=== PATIENT | female | born 1960 | race Caucasian/White ===

== ENCOUNTER 2019-04-22 06:54 | Emergency (ER) | payer OTHER ==
[2019-04-22] MEDS ORDERED: DIAZEPAM 5 MG TABLET ONE (08:13)
[2019-04-22] MEDS ORDERED: ONDANSETRON 4 MG (ODT) TAB ONE (08:14)
[2019-04-22] MEDS ORDERED: MORPHINE 4 MG/ML SYR ONE (08:14)
--- NOTE | 2019-04-22 08:54 | RAD REPORT ---
EXAM DESCRIPTION: CT - C Spine Wo Con - 04/22/2019 8:25 am CLINICAL HISTORY: Neck and back pain COMPARISON: None. TECHNIQUE: Axial 2 mm thick images of the cervical spine were obtained with sagittal and coronal rec onstruction images generated and reviewed. All CT scans are performed using dose optimization technique as appropriate and may include automated exposure control or mA/KV adjustment according to patient size. FINDINGS: Cervical body height and alignment are normal. Slight narrowing of the C4-5 disc space not ed with anterior endplate spurring. C5-C7 fusion changes are present. No fracture or acute bony abnor mality. No bony encroachment into the central canal or exit foramina. No paraspinal mass or hematoma. Central canal detail is inherently limited on CT imaging. IMPRESSION: Negative CT cervical spine examination for acute or suspicious finding.
[2019-04-22] MEDS ORDERED: FENTANYL CITR 100 MCG/2 ML ONE (10:20)
--- NOTE | 2019-04-22 13:00 | ER ---
Nurse's Notes [facility] Name: Veronica Goldman Age: 58 yrs Sex: Female : 1960 Arrival Date: 04/22/2019 Time: 06:58 Bed 14 Private MD: Diagnosis: Strain of muscle and tendon of back wall of thorax;Radiculopathy;Radiculopathy, cervicothoracic region Presentation: 04/22 07:07 Presenting complaint: Patient states: hx of chronic back and neck pain; "Monday when i hj woke up i started having this neck pain, shooting pain from my upper spine area to the R hip area and R arm, pain is 10/10, i have an appt with my pain doctor on but i cant it anymore;. Transition of care: patient was not received from another setting of care. Onset of symptoms was April 22, 2019. Risk Assessment: Do you want to hurt yourself or someone else? Patient reports no desire to harm self or others. Initial Sepsis Screen: Does the patient meet any 2 criteria? No. Patient's initial sepsis screen is negative. Does the patient have a suspected source of infection? No. Patient's initial sepsis screen is negative. Care prior to arrival: None. 07:07 Method Of Arrival: Ambulatory 07:07 Acuity: KEDAR 4 hj Triage Assessment: 07:13 General: Appears in no apparent distress. uncomfortable, Behavior is calm, cooperative, hj appropriate for age. Pain: Complains of pain in back and right arm. Musculoskeletal: Circulation, motion, and sensation intact. Capillary refill < 3 seconds. Historical: - Allergies: 07:12 PENICILLINS; 07:12 Sulindac; - Home Meds: 07:12 propranolol Oral [Active]; Amitriptyline Oral [Active]; Methocarbamol Oral [Active]; hj hydrocodone-acetaminophen 7.5-750 mg Oral tab 1 tab every 4 hours [Active]; gabapentin oral oral [Active]; - PMHx: 07:12 Back pain; neck pain; Hypertension; hj - PSHx: 07:12 neck fusion; hj - Immunization history:: Adult Immunizations up to date. - Social history:: Smoking status: Patient/guardian denies using tobacco, Patient/guardian denies using alcohol. - Ebola Screening: : Patient negative for fever greater than or equal to 101.5 degrees Fahrenheit, and additional compatible Ebola Virus Disease symptoms Patient denies exposure to infectious person Patient denies travel to an Ebola-affected area in the 21 days before illness onset. Screenin:13 Abuse screen: Denies threats or abuse. Denies injuries from another. Nutritional hj screening: No deficits noted. Tuberculosis screening: No symptoms or risk factors identified. Fall Risk None identified. Assessment: 07:14 General: Appears in no apparent distress. uncomfortable, Behavior is cooperative, hj appropriate for age, crying. Pain: Complains of pain in right arm and back. Neuro: Level of Consciousness is awake, alert, obeys commands, Oriented to person, place, time, situation, Appropriate for age. Cardiovascular: Capillary refill < 3 seconds Patient's skin is warm and dry. Respiratory: Airway is patent Respiratory effort is even, unlabored, Respiratory pattern is regular, symmetrical. GI: No signs and/or symptoms were reported involving the gastrointestinal system. : No signs and/or symptoms were reported regarding the genitourinary system. EENT: No signs and/or symptoms were reported regarding the EENT system. Derm: No signs and/or symptoms reported regarding the dermatologic system. Musculoskeletal: Reports pain in right arm and back. 08:05 Reassessment: sent to CT;. hj 09:00 Reassessment: Patient and/or family updated on plan of care and expected duration. Pain hj level reassessed. Patient is alert, oriented x 3, equal unlabored respirations, skin warm/dry/pink. Patient states feeling better. Vital Signs: 07:12 BP 135 / 89; Pulse 84; Resp 18; Temp 98.9(O); Pulse Ox 96% on R/A; Weight 81.19 kg; hj Height 5 ft. 1 in. (154.94 cm); Pain 10/10; 09:00 BP 130 / 87; Pulse 82; Resp 18; Pulse Ox 98% on R/A; hj 09:45 BP 132 / 85; Pulse 80; Resp 18; Pulse Ox 96% on R/A; hj 10:57 BP 132 / 79; Pulse 69; Resp 18; Pulse Ox 96% on R/A; hj 11:45 BP 130 / 79; Pulse 65; Resp 18; Pulse Ox 100% on R/A; hj 07:12 Body Mass Index 33.82 (81.19 kg, 154.94 cm) ED Course: 06:58 Patient arrived in ED. ag3 06:59 Jasbir Ayala PA is PHCP. [facility] 06:59 Dank Harper MD is Attending Physician. [facility] 07:07 Gabriele Torres, RN is Primary Nurse. hj 07:09 Triage completed. hj 07:13 Arm band placed on. hj 07:13 Patient has correct armband on for positive identification. Bed in low position. Call hj light in reach. Side rails up X 1. 07:17 Attending Physician role handed off by Dank Harper MD [place] 07:17 James Rosales MD is Attending Physician. [facility] 08:26 CT C Spine In Process Unspecified. [facility] 11:44 No provider procedures requiring assistance completed. Patient did not have IV access hj during this emergency room visit. Administered Medications: 08:25 Drug: morphine 4 mg Route: IM; Site: right deltoid; hj 08:58 Follow up: Response: No adverse reaction hj 08:25 Drug: Zofran 4 mg Route: PO; hj 08:58 Follow up: Response: No adverse reaction hj 08:25 Drug: Valium 5 mg Route: PO; hj 08:58 Follow up: Response: No adverse reaction hj 10:03 Drug: fentaNYL (PF) 25 mcg Route: IM; Site: left deltoid; hj 10:07 Follow up: Response: No adverse reaction; Pain is decreased Outcome: 11:19 Discharge ordered by . [facility] 11:45 Discharged to home ambulatory. 11:45 Condition: stable 11:45 Discharge instructions given to patient, Instructed on discharge instructions, follow up and referral plans. medication usage, Demonstrated understanding of instructions, follow-up care, medications, Prescriptions given X 1. 11:45 Patient left the ED. Signatures: Dispatcher [employer] EDMS James Rosales MD MD cha Mickail, Joel, PA PA jmm Joaquin, Henry, RN RN Pati Giron 3
--- NOTE | 2019-04-22 13:00 | EDPHYS ---
Physician Documentation [facility] Name: Veronica Goldman Age: 58 yrs Sex: Female : 1960 Arrival Date: 04/22/2019 Time: 06:58 Bed 14 Private MD: ED Physician James Rosales HPI: 04/22 07:17 This 58 yrs old Female presents to ER via Ambulatory with complaints of Back jmm Pain. 07:17 The patient presents with pain that is acute. Onset: The symptoms/episode jmm began/occurred gradually, 2 day(s) ago. The pain radiates to the right arm. Associated signs and symptoms: Pertinent negatives: chest pain, fever, shortness of breath. This is a 58 year old female with a history of chronic neck pain, chronic back pain that presents to the ED with complaints of right upper back pain that radiates down her right arm. patient denies chest pain, denies shortness of breath. symptoms began the day after she was gardening. Denies weakness. . Historical: - Allergies: 07:12 PENICILLINS; hj 07:12 Sulindac; hj - Home Meds: 07:12 propranolol Oral [Active]; Amitriptyline Oral [Active]; Methocarbamol Oral [Active]; hj hydrocodone-acetaminophen 7.5-750 mg Oral tab 1 tab every 4 hours [Active]; gabapentin oral oral [Active]; - PMHx: 07:12 Back pain; neck pain; Hypertension; hj - PSHx: 07:12 neck fusion; hj - Immunization history:: Adult Immunizations up to date. - Social history:: Smoking status: Patient/guardian denies using tobacco, Patient/guardian denies using alcohol. - Ebola Screening: : Patient negative for fever greater than or equal to 101.5 degrees Fahrenheit, and additional compatible Ebola Virus Disease symptoms Patient denies exposure to infectious person Patient denies travel to an Ebola-affected area in the 21 days before illness onset. ROS: 07:17 Constitutional: Negative for fever, chills, and weight loss, Cardiovascular: Negative jmm for chest pain, palpitations, and edema, Respiratory: Negative for shortness of breath, cough, wheezing, and pleuritic chest pain, Abdomen/GI: Negative for abdominal pain, nausea, vomiting, diarrhea, and constipation. 07:17 Back: Positive for pain with movement. 07:17 All other systems are negative. Exam: 07:17 Head/Face: atraumatic. Chest/axilla: Normal chest wall appearance and motion. [facility] Cardiovascular: Regular rate and rhythm. No edema appreciated Respiratory: Normal respirations, no respiratory distress appreciated 07:17 Constitutional: The patient appears alert, awake, uncomfortable. 07:17 Neck: C-spine: appears grossly normal. 07:17 Back: pain is reproduced on on palpation of the right trapezius, pain is elicited on movement of the right arm. 07:17 Musculoskeletal/extremity: ROM: intact in all extremities. 07:17 Musculoskeletal/extremity: normal finger jerk reflex of the right arm, full performance improvement specialist strength. 07:17 Skin: Appearance: Color: normal in color. 07:17 Neuro: Orientation: is normal, Mentation: is normal, Memory: is normal. 07:17 Psych: Behavior/mood is pleasant, cooperative, anxious. Vital Signs: 07:12 BP 135 / 89; Pulse 84; Resp 18; Temp 98.9(O); Pulse Ox 96% on R/A; Weight 81.19 kg; Height 5 ft. 1 in. (154.94 cm); Pain 10/10; 09:00 BP 130 / 87; Pulse 82; Resp 18; Pulse Ox 98% on R/A; hj 09:45 BP 132 / 85; Pulse 80; Resp 18; Pulse Ox 96% on R/A; hj 10:57 BP 132 / 79; Pulse 69; Resp 18; Pulse Ox 96% on R/A; hj 11:45 BP 130 / 79; Pulse 65; Resp 18; Pulse Ox 100% on R/A; hj 07:12 Body Mass Index 33.82 (81.19 kg, 154.94 cm) MDM: 07:17 Patient medically screened. [facility] 11:18 Data reviewed: vital signs, nurses notes. Counseling: I had a detailed discussion with [facility] the patient and/or guardian regarding: the historical points, exam findings, and any diagnostic results supporting the discharge/admit diagnosis, radiology results, the need for outpatient follow up, to return to the emergency department if symptoms worsen or persist or if there are any questions or concerns that arise at home. 11:18 ED course: Patient's pain has been decreased in the ED. I do not suspect disection at [facility] this time. Denies tearing pain, denies chest pain, BP WNL. Symptoms appear radicular. Patient will follow up with pain management and is otherwise given strict return precautions. Patient understood and agrees with the plan of care. . 04/22 07:44 Order name: CT C Spine; Complete Time: 08:56 [facility] Administered Medications: 08:25 Drug: morphine 4 mg Route: IM; Site: right deltoid; hj 08:58 Follow up: Response: No adverse reaction hj 08:25 Drug: Zofran 4 mg Route: PO; hj 08:58 Follow up: Response: No adverse reaction hj 08:25 Drug: Valium 5 mg Route: PO; hj 08:58 Follow up: Response: No adverse reaction hj 10:03 Drug: fentaNYL (PF) 25 mcg Route: IM; Site: left deltoid; hj 10:07 Follow up: Response: No adverse reaction; Pain is decreased Disposition: 04/22/19 11:19 Discharged to Home. Impression: Strain of muscle and tendon of back wall of thorax, Radiculopathy, Radiculopathy, cervicothoracic region. - Condition is Stable. - Discharge Instructions: Cervical Radiculopathy, Thoracic Strain. - Prescriptions for orphenadrine citrate 100 mg Oral Tablet Sustained Release - take 1 tablet by ORAL route 2 times per day As needed; 20 tablet. - Medication Reconciliation Form, Thank You Letter, Antibiotic Education, Prescription Opioid Use form. - Follow up: Private Physician; When: 2 - 3 days; Reason: Recheck today's complaints, Continuance of care, Re-evaluation by your physician. Signatures: Dispatcher [employer] EDMS James Rosales MD MD cha Mickail, Joel, PA PA Gabriele Loza RN RN hj Corrections: (The following items were deleted from the chart) 11:45 11:19 04/22/2019 11:19 Discharged to Home. Impression: Strain of muscle and tendon of hj back wall of thorax; Radiculopathy; Radiculopathy, cervicothoracic region. Condition is Stable. Forms are Medication Reconciliation Form, Thank You Letter, Antibiotic Education, Prescription Opioid Use. Follow up: Private Physician; When: 2 - 3 days; Reason: Recheck today's complaints, Continuance of care, Re-evaluation by your physician. carminam
== END 2019-04-22 11:45 | disposition home or self-care (01) ==
LOC: ER 06:54
DX: S29.012A Strain of muscle and tendon of back wall of thorax, initial encounter (principal); M54.13 Radiculopathy, cervicothoracic region; X58.XXXA Exposure to other specified factors, initial encounter; Z88.0 Allergy status to penicillin
CPT/HCPCS: 72125; 96372; 99283; J3010

== ENCOUNTER 2025-08-02 15:01 | Emergency (ER) | payer OTHER ==
--- OUTSIDE RECORDS SUMMARY | 2025-08-02 15:05 | XMS REPORT | Continuity of Care Document ---
Author Name Unknown Address [address] [facility] [place] [address] Organization [facility] [place] Address [address] [facility] [place] [address] Care Team Providers Care Worship Director Name Role Phone PCP, PATIENT DOES NOT HAVE A Primary Care Physic kathleen Unavailable Aquilino Cortés Attending Clinician Unavailable Karlie Roberto Attending Clinician Unavailable BENITO VALDOVINOS Attending Clinician Unavailable EMILY SCHAFER Attending Clinician UnavailKARLOS Felix Admitting Clinician Unavailable Payers Payer Name Policy Type Policy Number Effective Date Expirati on Date Source [employer] MEDICARE PPO 53 [id number] 2022 00:00:00 [facility] MEDICARE PART A \T\ B [id number] 2006 00:00:00 Problems Condition Name Condition Details Condition Category Status Onset Date Resolution Date Last Treatment Date Treating Clinician Comments Source [id number] Mood disorder Problem [facility] [id number] Chronic pain syndrome Problem [facility] [id number] Abnormal mammogram Problem [facility] [id number] Bipolar I disorder with vidhya Problem [facility] [id number] Preop examinatio n Problem [facility] [id number] Seasonal allergies Problem [facility] [id number] Anxiety Problem [facility] [id number] Cervical high risk HPV (human papillomav irus) test positive Problem [facility] [id number] Calcaneal spur of left foot Problem [facility] [id number] Migraine without aura and without status migrainosu s, not intractabl e Problem [facility] [id number] Primary insomnia Problem [facility] [id number] Plantar fasciitis of left foot Problem [facility] [id number] Abnormal EKG Problem [facility] Allergies, Adverse Reactions, Alerts Allergy Name Allergy Type Status Severity Reaction(s) Onset Date Inactive Date Treating Clinician Comments Source SULINDAC DRUG INGREDI Active Anaphylaxis 01-30 00:00: 00 [facility] PENICILL INS Drug Class Active Anaphylaxis 01-30 00:00: 00 [facility] [id number] Drug allergy Active anaphylaxis [facility] predniso ne predniso ne Active hives [facility] Social History Social Habit Start Date Stop Date Quantity Comments Source History of Tobacco Use Current Smoker [facility] Sex Assigned At [facility] Smoking Status Start Date Stop Date Source Current Smoker 2025-06-11 00:00:00 [facility] Light tobacco smoker 2023-10-13 00:00:00 [facility] Medications Ordered Medication Name Filled Medication Name Start Date Stop Date Current Medication? Ordering Clinician Indication Dosage Frequency Signature (SIG) Comments Components Source Albuterol Sulfate HFA 108 (90 Base) MCG/ACT Albuterol Sulfate HFA 108 (90 Base) MCG/ACT 05-08 00:00: 00 No 1{puff_ as_need ed} 6xD Albuterol Sulfate HFA 108 (90 Base) MCG/ACT Topiramate 100 MG Topiramate 100 MG No Topiramate 100 MG Methocarbam ol 750 MG Methocarbam ol 750 MG No 1{table t} 6xD Methocarba mol 750 MG Gabapentin 600 MG Gabapentin 600 MG No 1{table t} TID Gabapentin 600 MG Amitriptyli ne HCl 100 MG Amitriptyli ne HCl 100 MG No 1{table t_at_be dtime} QD Amitriptyl ine HCl 100 MG QUEtiapine Fumarate 200 MG QUEtiapine Fumarate 200 MG No QUEtiapine Fumarate 200 MG Propranolol HCl 40 MG Propranolol HCl 40 MG No Propranolo l HCl 40 MG busPIRone HCl 15 MG busPIRone HCl 15 MG No busPIRone HCl 15 MG Atomoxetine HCl 100 MG Atomoxetine HCl 100 MG No Atomoxetin e HCl 100 MG oxyCODONE-A cetaminophe n 5-325 MG oxyCODONE-A cetaminophe n 5-325 MG No oxyCODONE- Acetaminop hen 5-325 MG Vital Signs Vital Name Observation Time Observation Value Comments S carmence height 2025-06-11 11:30:00 64 [in_i] Commo n [facility] weight 2025-06-11 11:30:00 197 [lb_av] Comm on [facility] temperature 2025-06-11 11:30:00 98.0 [degF] Com mon [facility] bmi 2025-06-11 11:30:00 33.81 kg/m2 Comm on [facility] oximetry 2025-06-11 11:30:00 98 % Commo n [facility] respiratory rate 2025-06-11 11:30:00 16 /min Common [facility] blood pressure systolic 2025-06-11 11:30:00 124 mm[Hg] Common [facility] blood pressure diastolic 2025-06-11 11:30:00 70 mm[Hg] [facility] height 2025-04-08 14:45:00 64 [in_i] Commo n [facility] weight 2025-04-08 14:45:00 185.4 [lb_av] Co mmon [facility] temperature 2025-04-08 14:45:00 97.9 [degF] Com [facility] bmi 2025-04-08 14:45:00 31.82 kg/m2 Comm on [facility] oximetry 2025-04-08 14:45:00 95 % Commo n [facility] blood pressure systolic 2025-04-08 14:45:00 114 mm[Hg] [facility] blood pressure diastolic 2025-04-08 14:45:00 76 mm[Hg] Common [facility] height 2025-04-08 14:45:00 64 [in_i] Commo n [facility] weight 2025-04-08 14:45:00 185.4 [lb_av] Co mmon [facility] temperature 2025-04-08 14:45:00 97.9 [degF] Com [facility] bmi 2025-04-08 14:45:00 31.82 kg/m2 Comm on [facility] oximetry 2025-04-08 14:45:00 95 % Commo n [facility] blood pressure systolic 2025-04-08 14:45:00 114 mm[Hg] Common [facility] blood pressure diastolic 2025-04-08 14:45:00 76 mm[Hg] Common [facility] height 2025-02-10 10:00:00 64 [in_i] Commo n [facility] weight 2025-02-10 10:00:00 186.0 [lb_av] Co mmon [facility] temperature 2025-02-10 10:00:00 97.2 [degF] Com [facility] bmi 2025-02-10 10:00:00 31.92 kg/m2 Comm on [facility] oximetry 2025-02-10 10:00:00 97 % Commo n [facility] blood pressure systolic 2025-02-10 10:00:00 102 mm[Hg] Common [facility] blood pressure diastolic 2025-02-10 10:00:00 63 mm[Hg] Common [facility] height 2023-05-08 11:40:00 64 [in_i] Commo n [facility] weight 2023-05-08 11:40:00 194 [lb_av] Comm on [facility] bmi 2023-05-08 11:40:00 33.3 kg/m2 Commo n [facility] height 2022-10-17 08:00:00 64 [in_i] Commo n [facility] weight 2022-10-17 08:00:00 194.4 [lb_av] Co mmon [facility] temperature 2022-10-17 08:00:00 97.8 [degF] Com mon [facility] bmi 2022-10-17 08:00:00 33.37 kg/m2 Comm on [facility] oximetry 2022-10-17 08:00:00 97 % Comm n [facility] respiratory rate 2022-10-17 08:00:00 16 /min [facility] blood pressure systolic 2022-10-17 08:00:00 113 mm[Hg] [facility] blood pressure diastolic 2022-10-17 08:00:00 73 mm[Hg] [facility] Encounters Start Date/Time End Date/Time Encounter Type Admission Type Attending [facility] Care Facility Care Department Encounter ID Source 2025-02-10 10:19:00 Outpatient Aquilino Cortés [facility] [id number] [facility] 2025-02-06 10:16:00 Outpatient Karlie Roberto [facility] [id number] [facility] 2025-01-29 08:30:00 Outpatient Karlie Roberto [facility] [id number] [facility] 2022-11-01 16:44:01 Outpatient Karlie Roberto [facility] [id number] [facility] 2022-06-03 15:16:02 Outpatient Karlie Roberto [facility] [id number] [facility] 2022-04-15 11:00:02 Outpatient Karlie Roberto [facility] [id number] [facility] 2025-06-11 00:00:00 2025-06-11 00:00:00 OFFICE VISIT ESTAB PT LEVEL 3 [facility] [id number] [facility] 2025-04-10 00:00:00 2025-04-10 00:00:00 (TEL) [facility] [id number] [facility] 2025-04-08 00:00:00 2025-04-08 00:00:00 [facility] [id number] [facility] 2025-04-08 00:00:00 2025-04-08 00:00:00 OFFICE VISIT ESTAB PT LEVEL 4 [facility] [id number] [facility] 2025-04-02 00:00:00 2025-04-02 00:00:00 (TEL) [facility] [id number] [facility] 2025-03-26 00:00:00 2025-03-26 00:00:00 (TEL) [facility] [id number] [facility] 2025-02-10 00:00:00 2025-02-10 00:00:00 OFFICE VISIT NEW PT LEVEL 4 [facility] [id number] [facility] 2023-10-12 00:00:00 2023-10-12 00:00:00 (TEL) [facility] [id number] [facility] 2023-05-08 00:00:00 2023-05-08 00:00:00 OFFICE VISIT ESTAB PT LEVEL 4 [facility] [id number] [facility] 2022-10-17 00:00:00 2022-10-17 00:00:00 SUB ANNUAL [facility] VISIT [facility] [id number] [facility] 2022-10-17 00:00:00 2022-10-17 00:00:00 (TEL) [facility] [id number] [facility] 2022-09-08 11:47:00 2022-09-08 11:47:00 Outpatient BENITO LIM [facility] [id number] 33 [facility] 2022-05-13 00:00:00 2022-05-13 00:00:00 (TEL) [facility] [id number] [facility] 2022-05-04 00:00:00 2022-05-04 00:00:00 (TEL) [facility] [id number] [facility] 2022-04-15 00:00:00 2022-04-15 00:00:00 OFFICE VISIT NEW PT LEVEL 4 [facility] [id number] [facility] 2021-01-17 09:20:00 2021-01-17 09:20:00 Outpatient [facility] [id number] [facility] 2020-12-20 09:20:00 2020-12-20 09:20:00 Outpatient [facility] [id number] [facility] 2020-10-06 14:30:00 2020-10-06 14:30:00 Outpatient EMILY GRAF [facility] [id number] [facility] Results Test Description Test Time Test Comments Results Result Co mments Source THYROID STIMULATING [id number] 13:08:00* Test Item Value Reference Range Interpretation Comme nts THYROID STIMULATING HORMONE (test code = TSH) 1.816 uIU/ml 0.450-5.330 N BASIC METABOLIC [id number] 13:08:00* Test Item Value Reference Range Interpretation Comme nts SODIUM (test code = NA) 137 mmol/L 135-145 N POTASSIUM (test code = K) 4.5 mmol/L 3.6-5.0 N CHLORIDE (test code = CL) 104 mmol/L 101-111 N CARBON DIOXIDE (test code = CO2) 25 mmol/L 21-31 N GLUCOSE (test code = GLU) 107 mg/dl 70-100 H BLOOD UREA NITROGEN (test code = BUN) 10 mg/dl 6-20 N GLOMERULAR FILTRATION RATE (test code = GFR) 57 >60 L The estimated glomerular filtration rate is computed usingpatient race, age (>18), sex, and serum creatinine. If anyof the needed data elements are missing the Laboratory cannot compute an estimation of the glomerular filtration rate. CREATININE (test code = CREAT) 1.05 mg/dL 0.44-1.03 H CALCIUM (test code = CA) 9.6 mg/dL 8.5-10.5 N TOTAL [id number] 13:08:00* Test Item Value Reference Range Interpretation Comme [facility] TOTAL T3 (test code = T3) 97.95 ng/dL 87-178 N T4 (THYROXINE)2022-09-08 13:08:00* Test Item Value Reference Range Interpretation Comme nts T4 (THYROXINE) (test code = T4) 5.67 ug/dL 6.09-12.23 L CBC W/AUTO [id number] 12:31:00* Test Item Value Reference Range Interpretation Comme nts WHITE BLOOD CELL (test code = WBC) 4.2 x10 3/uL 3.2-11.5 N RED BLOOD CELL (test code = RBC) 4.33 x10(6)/m 3.70-5.10 N HEMOGLOBIN (test code = HGB) 13.5 g/dL 12.0-15.0 N HEMATOCRIT (test code = HCT) 39.8 % 35.7-44.8 N MEAN CELL VOLUME (test code = MCV) 92 fL 80-100 N MEAN CELL HGB (test code = MCH) 31.2 pg 26.2-33.8 N MEAN CELL HGB CONCENTRATION (test code = MCHC) 33.9 g/dL 30.0-34.0 N RED CELL DISTRIBUTION WIDTH (test code = RDW) 12.7 % 11.3-14.5 N PLATELET COUNT (test code = PLT) 238 x10 3/uL 130-408 N MEAN PLATELET VOLUME (test c ode = MPV) 8.9 fL 8.6-12.6 N NEUTROPHIL % (test code = NT%) 47.6 % 40.0-70.0 N LYMPHOCYTE % (test code = LY%) 43.1 % 20-40 H MONOCYTE % (test code = MO%) 6.7 % 1-10 N EOSINOPHIL % (test code = EO%) 1.7 % 0.0-5.0 N BASOPHIL % (test code = BA%) 0.7 % 0.0-1.0 N NUCLEATED RBC % (test code = NRBC%) 0.0 % 0.0-0.9 N NEUTROPHIL # (test code = NT#) 2.0 x10 3/uL 1.6-7.2 N LYMPHOCYTE # (test code = LY#) 1.80 x10 3/uL 1.1-2.7 N MONOCYTE # (test code = MO#) 0.3 x10 3/uL 0.3-0.8 N EOSINOPHIL # (test code = EO#) 0.1 x10 3/uL 0.0-0.5 N IMMATURE GRANULOCYTE % (test code = IG%) 0.2 % 0.0-2.0 N BASOPHIL # (test code = BA#) 0.0 x10 3/uL 0.0-0.1 N
[2025-08-02] MEDS ORDERED: LIDOCAINE 2% W/EPI 1:200,000 MPF 20 ML VIAL IM ONE (15:29)
[2025-08-02] MEDS ORDERED: FENTANYL CITR 100 MCG/2 ML ONE ×2 (15:30→17:46)
--- NOTE | 2025-08-02 15:55 | RAD REPORT ---
EXAMINATION: ONE VIEW CHEST XR CLINICAL INDICATION: CHEST PAIN TECHNIQUE: Frontal chest projection is submitted. Examination is limited by patient positioning and t echnique. COMPARISON: 01/30/2014 FINDINGS: The lungs are well inflated and clear. The heart is upper limit of normal in size. No displaced fract ures identified. Mild lower thoracic levoscoliosis. Cervical spine hardware plate. IMPRESSION: No acute intrathoracic abnormalities.
[2025-08-02 16:10] LABS: Absolute Lymphocytes (CBC) 1.7 K/uL (0.7-4.9); Hematocrit 38.6 % (36.0-45.0); Hemoglobin 13.4 g/dL (12.0-15.0); MCH 31.2 pg (27.0-35.0); MCHC 34.7 g/dL (32.0-36.0); MCV 89.8 fL (80-100); MPV 7.5 fL (7.6-11.3); Nucleated RBC Absolute Count 0.0 (0-0); Nucleated Red Blood Cells % 0.1 % (0-0); RBC Red Blood Cell Count 4.29 M/uL (3.86-4.86); White Blood Count 7.80 thou/uL (4.3-10.9)
[2025-08-02 17:01] LABS: ALT/SGPT 22 U/L (13-56); AST/SGOT 18 U/L (15-37); Albumin 3.7 g/dL (3.4-5.0); Albumin/Globulin Ratio 1.0 (1.1-1.8); Alkaline Phosphatase 90 U/L (45-117); Anion Gap 8.7 mEq/L (5.0-15.0); BUN Blood Urea Nitrogen 11 mg/dL (7-18); Globulin 3.8 g/dL (2.3-3.5); Glucose Level 101 mg/dL (74-106); Magnesium 2.4 mg/dL (1.6-2.4); Potassium 3.7 mEq/L (3.5-5.1); Troponin High Sensitivity 4.1 pg/mL (<58.9)
[2025-08-02 17:05] LABS: PT Prothrombin Time 11.5 SECONDS (10-13.0); Protime INR 1.02
[2025-08-02 17:15] LABS: Blood Morphology Comment NOT SEEN (NOT SEEN); Differential Total Cells Count 100; Segmented Neutrophils 68 % (40-80)
[2025-08-02 17:21] LABS: Bilirubin Indirect, Calculated 0.1 mg/dL (0.2-0.8)
[2025-08-02] MEDS ORDERED: CLINDAMYCIN 900MG/D5W 900 MG/50 ML IVPB IV ONE (17:46)
[2025-08-02] MEDS ORDERED: HYDROCODONE/APAP 5/325 MG TAB ONE (18:53)
[2025-08-02] MEDS ORDERED: SMZ./TMP. 800/160 MG TABLET ONE (19:00)
--- NOTE | 2025-08-02 19:12 | EDPHYS ---
Physician Documentation [facility] Name: Veronica Goldman Age: 64 yrs Sex: Female : 1960 Arrival Date: 08/02/2025 Time: 15:01 Bed 14 Private MD: ED Physician Rakesh Hoyt HPI: 08/02 15:25 This 64 yrs old Female presents to ER via Ambulatory with complaints of Boil, General cp Weakness. 15:25 The patient or guardian complains of an abscess, moderate-sized, pain, swelling. The cp complaints affect the left axilla. Onset: The symptoms/episode began/occurred 2 week(s) ago. 15:25 Treatment prior to arrival includes: no previous treatment. Associated signs and cp symptoms: Pertinent positives: erythema, fever, pain, weakness, Pertinent negatives: drainage. Severity of symptoms: in the emergency department the symptoms are unchanged, despite home interventions. Historical: - Allergies: 15:19 Sulindac; hb 15:19 PENICILLINS; hb - PMHx: 15:19 Back pain; Hypertension; neck pain; hb - Immunization history:: Adult Immunizations up to date. - Infectious Disease History:: Denies. - Social history:: Smoking status: Patient reports the use of cigarette tobacco products. ROS: 15:30 MS/extremity: Positive for erythema, pain, swelling, tenderness, of the left axilla, cp abscess, 15:30 Eyes: Negative for injury, pain, redness, and discharge, cp 15:30 Constitutional: Positive for chills, fever, Negative for body aches, poor PO intake, 15:30 ENT: Negative for drainage from ear(s), ear pain, sore throat, difficulty swallowing, difficulty handling secretions, 15:30 Respiratory: Negative for cough, shortness of breath, wheezing, 15:30 Abdomen/GI: Negative for abdominal pain, nausea, vomiting, and diarrhea, 15:30 Neuro: Positive for weakness, Negative for altered mental status, 15:30 All other systems are negative, Exam: 15:35 Constitutional: The patient appears in no acute distress, alert, awake, cp non-diaphoretic, non-toxic, well developed, well nourished, 15:35 Head/Face: Normocephalic, atraumatic. cp 15:35 Eyes: Periorbital structures: appear normal, Conjunctiva: normal, no exudate, no injection, Sclera: no appreciated abnormality, Lids and lashes: appear normal, bilaterally, 15:35 ENT: External ear(s): are unremarkable, Nose: is normal, Mouth: Lips: moist, Oral mucosa: moist, Posterior pharynx: Airway: no evidence of obstruction, patent, 15:35 Chest/axilla: Axilla: abscess, that is moderate in size, of the left axilla, with surrounding erythema, 15:35 Cardiovascular: Rate: normal, Rhythm: regular, Edema: is not appreciated, JVD: is not appreciated, 15:35 Respiratory: the patient does not display signs of respiratory distress, Respirations: normal, no use of accessory muscles, no retractions, labored breathing, is not present, Breath sounds: are clear throughout, no decreased breath sounds, no stridor, no wheezing, 15:35 Abdomen/GI: Inspection: abdomen appears normal, Palpation: abdomen is soft and non-tender, in all quadrants, 15:35 Back: pain, is absent, ROM is normal, 15:35 Neuro: Orientation: to person, place \T\ time. Mentation: is normal, 15:39 ECG was reviewed by the Attending Physician. cp Vital Signs: 15:17 BP 154 / 98; Pulse 98; Resp 15; Temp 98.7(O); Pulse Ox 100% on R/A; Weight 75.75 kg; hb Height 5 ft. 0 in. ; Pain 7/10; 15:30 BP 128 / 88; Pulse 99; Resp 16; Pulse Ox 99% on R/A; db 16:31 BP 147 / 79; Pulse 81; Resp 22; Pulse Ox 100% on R/A; db 17:00 BP 137 / 82; Pulse 89; Resp 16; Pulse Ox 99% ; db 18:00 BP 142 / 80; Pulse 90; Resp 17; Pulse Ox 100% on R/A; db 19:00 BP 155 / 92; Pulse 87; Resp 16; Pulse Ox 100% ; db 15:17 Body Mass Index 32.61 (75.75 kg, 152.4 cm) hb 15:17 Pain Scale: Adult hb Procedures: 19:10 I \T\ D: Incision and drainage was performed for an abscess of the left axilla. Prepped cp with Betadine, Anesthetized with ml's 2% Lidocaine with epinephrine. 8 ml's 2% Lidocaine with epinephrine. Incised with #11 blade. Drained moderate amount purulent fluid. bloody fluid. Packed with iodoform gauze, Dressing: sterile 4x4 gauze, the patient tolerated the procedure well. MDM: 15:12 Medical Screening Exam initiated cp 18:00 Differential diagnosis: cellulitis, abscess, sepsis. 08/02 15:22 Order name: Basic Metabolic Panel; Complete Time: 17:24 cp 08/02 15:22 Order name: CBC with Diff; Complete Time: 17:24 cp 08/02 17:02 Interpretation: Normal except: MPV 7.5; MN% 12.8. cp 08/02 15:22 Order name: LFT's; Complete Time: 17:24 cp 08/02 15:22 Order name: Magnesium; Complete Time: 17:24 cp 08/02 15:22 Order name: PT-INR; Complete Time: 17:24 cp 08/02 15:22 Order name: Troponin HS; Complete Time: 17:24 08/02 15:22 Order name: Lactate w/ 2H reflex if indic.; Complete Time: 17:24 08/02 16:14 Order name: Manual Differential; Complete Time: 17:24 EDMS 08/02 15:22 Order name: XRAY Chest (1 view); Complete Time: 15:58 cp 08/02 15:58 Interpretation: Report review. 08/02 15:22 Order name: Cardiac monitoring; Complete Time: 15:34 cp 08/02 15:22 Order name: EKG - Nurse/Tech; Complete Time: 15:34 cp 08/02 15:22 Order name: IV Saline Lock; Complete Time: 16:42 cp 08/02 15:22 Order name: Labs collected and sent; Complete Time: 16:42 08/02 15:22 Order name: O2 Per Protocol; Complete Time: 16:42 08/02 15:22 Order name: O2 Sat Monitoring; Complete Time: 16:42 08/02 15:22 Order name: I\T\D Setup; Complete Time: 16:42 cp 08/02 16:09 Order name: Misc. Order: recollect blue top and light green; Complete Time: 16:42 jl7 08/02 18:49 Order name: Wound dressing; Complete Time: 19:07 cp EC:39 Rate is 84 beats/min. Rhythm is regular. TX interval is normal. QRS interval is normal. cp T waves are Inverted in lead aVR. Interpreted by me. Reviewed by me. Administered Medications: 15:39 Drug: Lidocaine Infiltration (2 %) 20 ml 5 ml Infiltration once; to bedside with db epinephrine {Note: given to provider.} Volume: 5 ml; Route: Infiltration; 18:53 Follow up: Response: No adverse reaction db 16:30 Drug: fentaNYL (PF) IVP 25 mcg IVP once Route: IVP; Site: right antecubital; db 18:53 Follow up: Response: No adverse reaction db 17:48 Drug: fentaNYL (PF) IVP 25 mcg IVP once Route: IVP; Site: right antecubital; db 18:52 Follow up: Response: No adverse reaction db 17:50 Drug: Clindamycin IVPB 900 mg IVPB once over 30 mins; (mix in 50 mL) Route: IVPB; db Infused Over: 30 mins; Site: right antecubital; 19:30 Follow up: Response: No adverse reaction; IV Status: Completed infusion; IV Intake: [id number] 19:06 Not Given (NOT AVAILABLEe): acetaminophen-codeine(300 mg-30 mg) 2 tabs PO once; RASS on db ADMIN: Combtv4, Very Agttd3, Agttd2, Rstlss1, AlertClm0, Drwsy-1, Lt Sdtn-2, Mod Sdtn-3, Dp Sdtn-4, UnArsble-5 19:07 Drug: Trimethoprim-Sulfamethoxazole PO (160 mg-800 mg (DS) 1 tablet PO once Route: PO; db 19:30 Follow up: Response: No adverse reaction ss12 19:07 Drug: HYDROcodone-acetaminophen PO 5 mg-325 mg 1 tabs PO once Route: PO; db 19:30 Follow up: Response: No adverse reaction; Pain is decreased ss12 Disposition: 08/03 07:29 Co-signature as Attending Physician, Rakesh Hoyt MD I reviewed the patient's care rn provided by the Advanced Practice Provider and agree with the diagnosis and treatment plan. Disposition Summary: 08/02/25 19:11 Discharge Ordered Notes: Location: Home cp Problem: new cp Symptoms: have improved cp Condition: Stable cp Diagnosis - Cutaneous abscess of left axilla cp - Cellulitis of left upper limb cp Followup: cp - With: Alpesh Mc MD - When: 2 - 3 days - Reason: Wound Recheck Discharge Instructions: - Discharge Summary Sheet cp - Skin Abscess cp - Cellulitis, Adult cp - Incision and Drainage cp - Incision and Drainage, Care After cp Forms: - Medication Reconciliation Form cp - Antibiotic Education cp - Prescription Opioid Use cp - Patient Portal Instructions cp - Leadership Thank You Letter cp Prescriptions: - Clindamycin HCl 300 mg Oral Capsule - take 1 capsule ORAL route every 6 hours for 10 days; 40 capsule; Refills: 0, cp Product Selection Permitted - Bactrim DS 800-160 mg Oral Tablet - take 1 tablet ORAL route every 12 hours for 10 days; 20 tablet; Refills: 0, cp Product Selection Permitted - Tylenol-Codeine #3 300mg-30mg Oral tablet - take 1 tablet ORAL route every 4-6 hours As needed; 14 tablet; Refills: 0, cp Product Selection Permitted Addendum: 19:30 Addendum: Vital signs stable. I\T\D performed as noted in chart. Patient will be cp discharged with oral antibiotics and recommendation to follow-up with general surgery in the next 2 to 3 days for wound evaluation. Signatures: Dispatcher [employer] EDMS Rakesh Hoyt MD MD rn Page, Corey, PA-C PA-C cp Baxter, Heather, RN RN Mary Clark RN RN jl7 Diana Curtis RN RN db Dang Leong RN ss12 Corrections: (The following items were deleted from the chart) 08/02 15:23 15:23 BASIC METABOLIC PANEL+C.LAB.BRZ ordered. EDMS EDMS 15:23 15:23 CBC+H.LAB.BRZ ordered. EDMS EDMS 15:23 15:23 HEPATIC FUNCTION+C.LAB.BRZ ordered. EDMS EDMS 15:23 15:23 MAGNESIUM+C.LAB.BRZ ordered. EDMS EDMS 15:23 15:23 PROTIME (+INR)+COAG.LAB.BRZ ordered. EDMS EDMS 15:23 15:23 Troponin High Sensitivity+C.LAB.BRZ ordered. EDMS EDMS 15:23 15:23 LACTATE+C.LAB.BRZ ordered. EDMS EDMS 15:23 15:23 Chest Single View+RAD.RAD.BRZ ordered. EDMS EDMS
--- NOTE | 2025-08-02 19:12 | ER ---
Nurse's Notes [facility] Name: Veronica Goldman Age: 64 yrs Sex: Female : 1960 Arrival Date: 08/02/2025 Time: 15:01 Bed 14 Private MD: Diagnosis: Cutaneous abscess of left axilla;Cellulitis of left upper limb Presentation: 08/02 15:17 Chief complaint: Abscess under left arm x 2 weeks, nausea, chills, and fever since hb yesterday. Coronavirus screen: At this time, the client does not indicate any symptoms associated with coronavirus-19. Ebola Screen: No symptoms or risks identified at this time. Initial Sepsis Screen: Does the patient meet any 2 criteria? No. Patient's initial sepsis screen is negative. Does the patient have a suspected source of infection? No. Patient's initial sepsis screen is negative. Risk Assessment: Do you want to hurt yourself or someone else? Patient reports no desire to harm self or others. Onset of symptoms was July 19, 2025. 15:17 Method Of Arrival: Ambulatory hb 15:17 Acuity: KEDAR 3 hb Triage Assessment: 19:29 General: Appears in no apparent distress. Pain: Denies pain. ss12 Historical: - Allergies: 15:19 Sulindac; hb 15:19 PENICILLINS; hb - PMHx: 15:19 Back pain; Hypertension; neck pain; hb - Immunization history:: Adult Immunizations up to date. - Infectious Disease History:: Denies. - Social history:: Smoking status: Patient reports the use of cigarette tobacco products. Screenin:43 [facility] ED Fall Risk Assessment (Adult) History of falling in the last 3 months, db including since admission No falls in past 3 months (0 pts) Confusion or Disorientation No (0 pts) Intoxicated or Sedated No (0 pts) Impaired Gait No (0 pts) Mobility Assist Device Used No (0 pt) Altered Elimination No (0 pt) Score/Fall Risk Level 0 - 2 = Low Risk Oriented to surroundings, Maintained a safe environment. Abuse screen: Denies threats or abuse. Denies injuries from another. Nutritional screening: No deficits noted. Tuberculosis screening: No symptoms or risk factors identified. Assessment: 15:55 Reassessment: Patient appears in no apparent distress at this time. Patient and/or db family updated on plan of care and expected duration. Pain level reassessed. Patient is alert, oriented x 3, equal unlabored respirations, skin warm/dry/pink. General: Appears in no apparent distress. comfortable, Behavior is calm, cooperative. Neuro: Level of Consciousness is awake, alert, obeys commands, Oriented to person, place, time, situation. Respiratory: Airway is patent Respiratory effort is even, unlabored, Respiratory pattern is regular, symmetrical. 16:48 Reassessment: Patient appears in no apparent distress at this time. Patient and/or db family updated on plan of care and expected duration. Pain level reassessed. Patient is alert, oriented x 3, equal unlabored respirations, skin warm/dry/pink. Patient states feeling better. Patient states symptoms have improved. 17:15 Reassessment: Patient appears in no apparent distress at this time. Patient and/or db family updated on plan of care and expected duration. Pain level reassessed. Patient is alert, oriented x 3, equal unlabored respirations, skin warm/dry/pink. 18:02 Reassessment: PROVIDER AT BEDSIDE. db 19:00 Reassessment: Patient appears in no apparent distress at this time. Patient and/or db family updated on plan of care and expected duration. Pain level reassessed. Patient is alert, oriented x 3, equal unlabored respirations, skin warm/dry/pink. Vital Signs: 15:17 BP 154 / 98; Pulse 98; Resp 15; Temp 98.7(O); Pulse Ox 100% on R/A; Weight 75.75 kg; hb Height 5 ft. 0 in. ; Pain 7/10; 15:30 BP 128 / 88; Pulse 99; Resp 16; Pulse Ox 99% on R/A; db 16:31 BP 147 / 79; Pulse 81; Resp 22; Pulse Ox 100% on R/A; db 17:00 BP 137 / 82; Pulse 89; Resp 16; Pulse Ox 99% ; db 18:00 BP 142 / 80; Pulse 90; Resp 17; Pulse Ox 100% on R/A; db 19:00 BP 155 / 92; Pulse 87; Resp 16; Pulse Ox 100% ; db 15:17 Body Mass Index 32.61 (75.75 kg, 152.4 cm) hb 15:17 Pain Scale: Adult hb ED Course: 15:05 Patient arrived in ED. ts1 15:12 [facility] cp 15:12 Rakesh Hoyt MD is Attending Physician. cp 15:19 Triage completed. hb 15:20 Arm band placed on. hb 15:24 Diana Curtis, RN is Primary Nurse. db 15:50 XRAY Chest (1 view) In Process Unspecified. EDMS 16:30 Accessed peripheral vein via ultrasound, utilizing dynamic ultrasound technique using hb per hospital protocol. Clean \T\ dry. Dressing intact. Good blood return. Flushes easily. 20g RAC. 16:43 Patient has correct armband on for positive identification. Bed in low position. Call db light in reach. Side rails up X 1. Pulse ox on. NIBP on. Warm blanket given. Pillow given. 18:30 Provided Education on: WOUND CARE AND FOLLOWUP . db 18:30 Assist provider with I \T\ D: of an abscess on left axilla Set up I\T\D tray. Performed by elizabeth Ozuna PA-C Wound packed. Dressing with 4X4s, Patient tolerated well. 18:40 Dressings: 4X4s X 2; left axilla. db 19:11 Alpesh Mc MD is Referral Physician. cp 19:28 Dang Leong RN is Primary Nurse. ss12 19:29 IV discontinued, intact, bleeding controlled, No redness/swelling at site. Pressure ss12 dressing applied. Administered Medications: 15:39 Drug: Lidocaine Infiltration (2 %) 20 ml 5 ml Infiltration once; to bedside with db epinephrine {Note: given to provider.} Volume: 5 ml; Route: Infiltration; 18:53 Follow up: Response: No adverse reaction db 16:30 Drug: fentaNYL (PF) IVP 25 mcg IVP once Route: IVP; Site: right antecubital; db 18:53 Follow up: Response: No adverse reaction db 17:48 Drug: fentaNYL (PF) IVP 25 mcg IVP once Route: IVP; Site: right antecubital; db 18:52 Follow up: Response: No adverse reaction db 17:50 Drug: Clindamycin IVPB 900 mg IVPB once over 30 mins; (mix in 50 mL) Route: IVPB; db Infused Over: 30 mins; Site: right antecubital; 19:30 Follow up: Response: No adverse reaction; IV Status: Completed infusion; IV Intake: [id number] 19:06 Not Given (NOT AVAILABLEe): acetaminophen-codeine(300 mg-30 mg) 2 tabs PO once; RASS on db ADMIN: Combtv4, Very Agttd3, Agttd2, Rstlss1, AlertClm0, Drwsy-1, Lt Sdtn-2, Mod Sdtn-3, Dp Sdtn-4, UnArsble-5 19:07 Drug: Trimethoprim-Sulfamethoxazole PO (160 mg-800 mg (DS) 1 tablet PO once Route: PO; db 19:30 Follow up: Response: No adverse reaction ss12 19:07 Drug: HYDROcodone-acetaminophen PO 5 mg-325 mg 1 tabs PO once Route: PO; db 19:30 Follow up: Response: No adverse reaction; Pain is decreased ss12 Medication: 18:30 VIS not applicable for this client. db Intake: 19:30 IV: 50ml; Total: 50ml. ss12 Outcome: 19:11 Discharge ordered by MD. cp 19:29 Discharged to home ambulatory, 12 19:29 Condition: stable 19:29 Discharge instructions given to patient, Instructed on discharge instructions, follow up and referral plans. Demonstrated understanding of instructions, follow-up care, medications, Prescriptions given X 3, 19:30 Patient left the ED. ss12 Signatures: Dispatcher [employer] EDMS James Ozuna PA-C PAJuany Philip cp, RN RN Diana Curtis RN RN db Simpson, Tanya, PAS PAS ts1 Dang Leong RN RN ss12 Corrections: (The following items were deleted from the chart) 16:48 16:33 BP 139 / 99; Pulse 105bpm; Resp 16bpm; Pulse Ox 98% RA; db db 19:09 19:08 No provider procedures requiring assistance completed. db db
[2025-08-02 19:36] VITALS: TEMP 98.7
[2025-08-02 19:44] VITALS: O2SAT 100
[2025-08-02 19:45] VITALS: BP 155/92
== END 2025-08-02 19:30 | disposition home or self-care (01) ==
LOC: ER 15:01
PROC: 0J9F0ZZ Drainage of Left Upper Arm Subcutaneous Tissue and Fascia, Open Approach (ICD-10-PCS; principal; 2025-08-02)
DX: L02.412 Cutaneous abscess of left axilla (principal); L03.114 Cellulitis of left upper limb; I10 Essential (primary) hypertension; F17.210 Nicotine dependence, cigarettes, uncomplicated; Z88.0 Allergy status to penicillin; Z88.2 Allergy status to sulfonamides
CPT/HCPCS: 96365; 93005; 85025; 80048; 36415; 83735; 85610; 80076; 83605; 84484; 71045; 96375; 99285; 96366; 10060; J3010 ×2

== ENCOUNTER 2025-08-04 15:57 | Emergency (ER) | payer OTHER ==
--- OUTSIDE RECORDS SUMMARY | 2025-08-04 16:01 | XMS REPORT | Continuity of Care Document ---
Author Name Unknown Address [address] [place] [address] Organization [facility] Address 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 Phone PCP, PATIENT DOES NOT HAVE A Primary Care Physic kathleen Unavailable Aquilino Cortés Attending Clinician Unavailable Karlie Roberto Attending Clinician Unavailable BENITO VALDOVINOS Attending Clinician Unavailable EMILY SCHAFER Attending Clinician UnavailKARLOS Felix Admitting Clinician Unavailable Payers Payer Name Policy Type Policy Number Effective Date Expirati on Date Source [employer] MEDICARE PPO 53 [id number] 2022 00:00:00 [facility] MEDICARE PART A \T\ B [id number] 2006 00:00:00 Problems Condition Name Condition Details Condition Category Status Onset Date Resolution Date Last Treatment Date Treating Clinician Comments Source [id number] Mood disorder Problem [facility] [id number] Chronic pain syndrome Problem [facility] [id number] Abnormal mammogram Problem [facility] [id number] Bipolar I disorder with vidhya Problem [facility] [id number] Preop examinatio n Problem [facility] [id number] Seasonal allergies Problem [facility] [id number] Anxiety Problem [facility] [id number] Cervical high risk HPV (human papillomav irus) test positive Problem [facility] [id number] Calcaneal spur of left foot Problem [facility] [id number] Migraine without aura and without status migrainosu s, not intractabl e Problem [facility] [id number] Primary insomnia Problem [facility] [id number] Plantar fasciitis of left foot Problem [facility] [id number] Abnormal EKG Problem [facility] Allergies, Adverse Reactions, Alerts Allergy Name Allergy Type Status Severity Reaction(s) Onset Date Inactive Date Treating Clinician Comments Source SULINDAC DRUG INGREDI Active Anaphylaxis 01-30 00:00: 00 [facility] Drug Class Active Anaphylaxis 01-30 00:00: 00 [facility] [id number] Drug allergy Active anaphylaxis [facility] predniso ne predniso ne Active hives [facility] Social History Social Habit Start Date Stop Date Quantity Comments Source History of Tobacco Use Current Smoker [facility] Sex Assigned At [facility] Smoking Status Start Date Stop Date Source Current Smoker 2025-06-11 00:00:00 [facility] Light tobacco smoker 2023-10-13 00:00:00 [facility] Medications Ordered Medication Name Filled Medication Name [...] height 2025-06-11 11:30:00 64 [in_i] Commo n [facility] weight 2025-06-11 11:30:00 197 [lb_av] Comm on [facility] temperature 2025-06-11 11:30:00 98.0 [degF] Com mon [facility] bmi 2025-06-11 11:30:00 33.81 kg/m2 Comm on [facility] oximetry 2025-06-11 11:30:00 98 % Commo n [facility] respiratory rate 2025-06-11 11:30:00 16 /min Common [facility] blood pressure systolic 2025-06-11 11:30:00 124 mm[Hg] Common [facility] blood pressure diastolic 2025-06-11 11:30:00 70 mm[Hg] [facility] height 2025-04-08 14:45:00 64 [in_i] Commo n [facility] weight 2025-04-08 14:45:00 185.4 [lb_av] Co mmon [facility] temperature 2025-04-08 14:45:00 97.9 [degF] Com [facility] bmi 2025-04-08 14:45:00 31.82 kg/m2 Comm on [facility] oximetry 2025-04-08 14:45:00 95 % Commo n [facility] blood pressure systolic 2025-04-08 14:45:00 114 mm[Hg] [facility] blood pressure diastolic 2025-04-08 14:45:00 76 mm[Hg] [facility] height 2025-04-08 14:45:00 64 [in_i] Commo n [facility] weight 2025-04-08 14:45:00 185.4 [lb_av] Co mmon [facility] temperature 2025-04-08 14:45:00 97.9 [degF] Com [facility] bmi 2025-04-08 14:45:00 31.82 kg/m2 Comm on [facility] oximetry 2025-04-08 14:45:00 95 % Commo n [facility] blood pressure systolic 2025-04-08 14:45:00 114 mm[Hg] [facility] blood pressure diastolic 2025-04-08 14:45:00 76 mm[Hg] Common [facility] height 2025-02-10 10:00:00 64 [in_i] Commo n [facility] weight 2025-02-10 10:00:00 186.0 [lb_av] Co mmon [facility] temperature 2025-02-10 10:00:00 97.2 [degF] Com [facility] bmi 2025-02-10 10:00:00 31.92 kg/m2 Comm on [facility] oximetry 2025-02-10 10:00:00 97 % Commo n [facility] blood pressure systolic 2025-02-10 10:00:00 102 mm[Hg] Common [facility] blood pressure diastolic 2025-02-10 10:00:00 63 mm[Hg] [facility] height 2023-05-08 11:40:00 64 [in_i] Commo n [facility] weight 2023-05-08 11:40:00 194 [lb_av] Comm on [facility] bmi 2023-05-08 11:40:00 33.3 kg/m2 Commo n [facility] height 2022-10-17 08:00:00 64 [in_i] Commo n [facility] weight 2022-10-17 08:00:00 194.4 [lb_av] Co mmon [facility] temperature 2022-10-17 08:00:00 97.8 [degF] Com mon [facility] bmi 2022-10-17 08:00:00 33.37 kg/m2 Comm on [facility] oximetry 2022-10-17 08:00:00 97 % Comm n [facility] respiratory rate 2022-10-17 08:00:00 16 /min [facility] blood pressure systolic 2022-10-17 08:00:00 113 mm[Hg] [facility] blood pressure diastolic 2022-10-17 08:00:00 73 mm[Hg] [facility] Encounters Start Date/Time End Date/Time Encounter Type Admission Type Attending [facility] Care Department Encounter ID Source 2025-02-10 10:19:00 Outpatient Aquilino Crotés [facility] [id number] [facility] 2025-02-06 10:16:00 Outpatient Karlie Roberto [facility] [id number] [facility] 2025-01-29 08:30:00 Outpatient Karlie Roberto [facility] [id number] [facility] 2022-11-01 16:44:01 Outpatient Karlie Roberto [facility] [id number] [facility] 2022-06-03 15:16:02 Outpatient Karlie Roberto [facility] [id number] [facility] 2022-04-15 11:00:02 Outpatient Karlie Roberto [facility] [id number] [facility] 2025-06-11 00:00:00 2025-06-11 00:00:00 OFFICE VISIT ESTAB PT LEVEL 3 [facility] [id number] [facility] 2025-04-10 00:00:00 2025-04-10 00:00:00 (TEL) [facility] [id number] [facility] 2025-04-08 00:00:00 2025-04-08 00:00:00 SUB ANNUAL [facility] WELLNESS VISIT [facility] [id number] [facility] 2025-04-08 00:00:00 2025-04-08 00:00:00 OFFICE VISIT ESTAB PT LEVEL 4 [facility] [id number] [facility] 2025-04-02 00:00:00 2025-04-02 00:00:00 (TEL) [facility] [id number] [facility] 2025-03-26 00:00:00 2025-03-26 00:00:00 (TEL) [facility] [id number] [facility] 2025-02-10 00:00:00 2025-02-10 00:00:00 OFFICE VISIT NEW PT LEVEL 4 [facility] [id number] [facility] 2023-10-12 00:00:00 2023-10-12 00:00:00 (TEL) [facility] [id number] [facility] 2023-05-08 00:00:00 2023-05-08 00:00:00 OFFICE VISIT ESTAB PT LEVEL 4 [facility] [id number] [facility] 2022-10-17 00:00:00 2022-10-17 00:00:00 SUB ANNUAL [facility] WELLNESS VISIT [facility] [id number] [facility] 2022-10-17 00:00:00 2022-10-17 00:00:00 (TEL) [facility] [id number] [facility] 2022-09-08 11:47:00 2022-09-08 11:47:00 Outpatient BENITO LIM [facility] [id number] [facility] 2022-05-13 00:00:00 2022-05-13 00:00:00 (TEL) [facility] [id number] [facility] 2022-05-04 00:00:00 2022-05-04 00:00:00 (TEL) [facility] [id number] [facility] 2022-04-15 00:00:00 2022-04-15 00:00:00 OFFICE VISIT NEW PT LEVEL 4 [facility] [id number] [facility] 2021-01-17 09:20:00 2021-01-17 09:20:00 Outpatient [facility] [id number] [facility] 2020-12-20 09:20:00 2020-12-20 09:20:00 Outpatient [facility] [id number] [facility] 2020-10-06 14:30:00 2020-10-06 14:30:00 Outpatient EMILY GRAF [facility] [id number] [facility] Results Test Description Test Time Test Comments Results Result Co mments Source THYROID STIMULATING [id number] 13:08:00* Test Item Value Reference Range Interpretation Comme nts THYROID STIMULATING HORMONE (test code = TSH) 1.816 uIU/ml 0.450-5.330 N BASIC METABOLIC [id number] 13:08:00* Test Item Value Reference Range Interpretation [...] = CA) 9.6 mg/dL 8.5-10.5 N TOTAL [id number] 13:08:00* Test Item Value Reference Range Interpretation Comme [facility] TOTAL T3 (test code = T3) 97.95 ng/dL 87-178 N T4 (THYROXINE)2022-09-08 13:08:00* Test Item Value Reference Range Interpretation Comme nts T4 (THYROXINE) (test code = T4) 5.67 ug/dL 6.09-12.23 L CBC W/AUTO [id number] 12:31:00* Test Item Value Reference Range Interpretation [...]
--- NOTE | 2025-08-04 16:59 | EDPHYS ---
Physician Documentation [facility] Name: Veronica Goldman Age: 64 yrs Sex: Female : 1960 Arrival Date: 08/04/2025 Time: 15:57 Bed Treatment Private MD: ED Physician Rakesh Hoyt HPI: 08/04 16:53 This 64 yrs old Female presents to ER via Ambulatory with complaints of Wound Check. rn 16:53 Patient reports came in for wound reevaluation. Told 2 days ago when incision and rn drainage performed that if could not get in with her surgeon to come here for reevaluation and repacking. No acute complaints. No fever. Is taking 2 antibiotics. Overall wound has improved.. Historical: - Allergies: 16:17 PENICILLINS; dd2 16:17 Sulindac; dd2 - PMHx: 16:17 Back pain; Hypertension; neck pain; dd2 - Immunization history:: Adult Immunizations unknown. - Infectious Disease History:: Denies. - Family history:: not pertinent. - Hospitalizations: : No recent hospitalization is reported. - Social history:: Smoking status: unknown. ROS: 16:53 Constitutional: Negative for fever, chills, and weight loss, Skin: Status post incision rn and drainage 2 days ago, wound is still packed, still draining Exam: 16:53 Constitutional: This is a well developed, well nourished patient who is awake, alert, rn and in no acute distress. Skin: 1 cm incision noted left axilla, wound packing removed easily and still purulent. No new fluctuance or signs of cellulitis. Vital Signs: 16:13 BP 151 / 93; Pulse 86; Resp 16; Temp 98.5; Pulse Ox 100% ; Pain 7/10; dd2 17:18 BP 148 / 88; Pulse 84; Resp 18; Pulse Ox 99% ; db 16:13 Pain Scale: Adult dd2 Procedures: 16:53 Performed Wound packing performed by myself, 4 inches of iodoform quarter inch packing rn placed back into wound using cotton swab, tolerated well. MDM: 16:05 Medical Screening Exam initiated rn 16:53 Differential diagnosis: Encounter for wound evaluation and recheck with repacking. rn 16:57 Data reviewed: vital signs, nurses notes, and as a result, I will discharge patient. rn Counseling: I had a detailed discussion with the patient and/or guardian regarding the historical points, exam findings, and any diagnostic results supporting the discharge/admit diagnosis, the need for outpatient follow up, to return to the emergency department if symptoms worsen or persist or if there are any questions or concerns that arise at home. Special discussion: I discussed with the patient/guardian in detail that at this point there is no indication for admission to the hospital. It is understood, however, that if the symptoms persist or worsen the patient needs to return immediately for re-evaluation. Based on the history and exam findings, there is no indication for further emergent testing or inpatient evaluation. I discussed with the patient/guardian the need to see the general surgeon for further evaluation of the symptoms. I discussed with the patient/guardian the need to see the primary care provider for further evaluation of the symptoms. 08/04 16:57 Order name: Wound dressing; Complete Time: 17:11 rn Administered Medications: No medications were administered Disposition Summary: 08/04/25 16:59 Discharge Ordered Notes: Location: Home rn Problem: new rn Symptoms: have improved rn Condition: Stable rn Diagnosis - Encounter for change or removal of surgical wound dressing - with repacking rn Followup: rn - With: Private Physician - When: As needed - Reason: Recheck today's complaints, Re-evaluation by your physician Discharge Instructions: - Discharge Summary Sheet rn - How to Change Your Wound Dressing rn - Wound Packing rn Forms: - Medication Reconciliation Form rn - Antibiotic brick burner head - Prescription Opioid Use rn - Patient Portal Instructions rn - Leadership Thank You Letter rn Signatures: Rakesh Hoyt MD MD rn Benton, Danielle, RN RN db DAVIS, DIANA, RN RN dd2
--- NOTE | 2025-08-04 16:59 | ER ---
Nurse's Notes [facility] Name: Veronica Goldman Age: 64 yrs Sex: Female : 1960 Arrival Date: 08/04/2025 Time: 15:57 Bed Treatment Private MD: Diagnosis: Encounter for change or removal of surgical wound dressing-with repacking Presentation: 08/04 16:13 Chief complaint: Patient states: SHE WAS HERE ON MONDAY AND HAD AN ABSCESS UNDER LT dd2 ARM DRAINED. WAS ADVISED TO RETURN IF SHE COULD NOT GET IN WITH A SURGEON. PT REPORTS PAIN RETURNED. Coronavirus screen: At this time, the client does not indicate any symptoms associated with coronavirus-19. Ebola Screen: No symptoms or risks identified at this time. Initial Sepsis Screen: Does the patient meet any 2 criteria? No. Patient's initial sepsis screen is negative. Does the patient have a suspected source of infection? No. Patient's initial sepsis screen is negative. Risk Assessment: Do you want to hurt yourself or someone else? Patient reports no desire to harm self or others. Onset of symptoms was August 01, 2025. 16:13 Method Of Arrival: Ambulatory dd2 16:13 Acuity: KEDAR 4 dd2 Triage Assessment: 16:17 General: Appears in no apparent distress. uncomfortable, Behavior is calm, cooperative, dd2 appropriate for age. Pain: Complains of pain in left axilla. Historical: - Allergies: 16:17 PENICILLINS; dd2 16:17 Sulindac; dd2 - PMHx: 16:17 Back pain; Hypertension; neck pain; dd2 - Immunization history:: Adult Immunizations unknown. - Infectious Disease History:: Denies. - Family history:: not pertinent. - Hospitalizations: : No recent hospitalization is reported. - Social history:: Smoking status: unknown. Screenin:18 [facility] ED Fall Risk Assessment (Adult) History of falling in the last 3 months, db including since admission No falls in past 3 months (0 pts) Confusion or Disorientation No (0 pts) Intoxicated or Sedated No (0 pts) Impaired Gait No (0 pts) Mobility Assist Device Used No (0 pt) Altered Elimination No (0 pt) Score/Fall Risk Level 0 - 2 = Low Risk Oriented to surroundings, Maintained a safe environment. Abuse screen: Denies threats or abuse. Denies injuries from another. Nutritional screening: No deficits noted. Tuberculosis screening: No symptoms or risk factors identified. Assessment: 17:18 Reassessment: Patient appears in no apparent distress at this time. Patient and/or db family updated on plan of care and expected duration. Pain level reassessed. Patient is alert, oriented x 3, equal unlabored respirations, skin warm/dry/pink. General: Appears in no apparent distress. comfortable, Behavior is calm, cooperative. Neuro: Level of Consciousness is awake, alert, obeys commands, Oriented to person, place, time, situation. Respiratory: Airway is patent Respiratory effort is even, unlabored, Respiratory pattern is regular, symmetrical. Vital Signs: 16:13 BP 151 / 93; Pulse 86; Resp 16; Temp 98.5; Pulse Ox 100% ; Pain 7/10; dd2 17:18 BP 148 / 88; Pulse 84; Resp 18; Pulse Ox 99% ; db 16:13 Pain Scale: Adult dd2 ED Course: 16:01 Patient arrived in ED. al6 16:04 Rakesh Hoyt MD is Attending Physician. rn 16:17 Triage completed. dd2 16:17 Arm band placed on right wrist. dd2 17:11 Diana Curtis, RN is Primary Nurse. db 17:18 Patient has correct armband on for positive identification. Bed in low position. Call db light in reach. Side rails up X 1. Provided Education on: DISCHARGE AND FOLLOWUP. 17:18 Assist provider with I \T\ D: of an abscess on left axilla Performed by Rakesh johnson Wound packed. iodoform gauze, Dressing with 4X4s, tape. Patient did not have IV access during this emergency room visit. Administered Medications: No medications were administered Medication: 17:18 VIS not applicable for this client. db Outcome: 16:59 Discharge ordered by . rn 17:18 Discharged to home ambulatory, db 17:18 Condition: stable 17:18 Discharge instructions given to patient, Instructed on discharge instructions, follow up and referral plans. 17:22 Patient left the ED. db Signatures: Rakesh Hoyt MD MD rn Benton, Danielle, RN VENKATESH Alvarez RN RN dd2 Judith Archer al6 Corrections: (The following items were deleted from the chart) 17:22 17:18 No provider procedures requiring assistance completed. db db
[2025-08-04 18:30] VITALS: TEMP 98.5
[2025-08-04 18:32] VITALS: BP 148/88; O2SAT 99
== END 2025-08-04 17:22 | disposition home or self-care (01) ==
LOC: ER 15:57
DX: Z48.01 Encounter for change or removal of surgical wound dressing (principal)
CPT/HCPCS: 99283